=== PATIENT | female | born 1990 | race Caucasian/White ===

== ENCOUNTER 2018-12-13 20:19 | Emergency (ER) | payer BC, OTHER ==
[2018-12-13 21:15] LABS: #Eosinphils 0.1 thou/uL (0.0-0.7); #Lymphocytes 2.5 thou/uL (1.20-3.40); #Monocytes 0.6 thou/uL (0.11-0.59); #Neutrophils 3.4 thou/uL (1.40-6.50); %Basophils 0.6 % (0.0-1.0); %Eosinophils 1.4 % (0.0-10.0); %Lymphocytes 37.4 % (21.0-51.0); %Monocytes 8.9 % (0.0-10.0); %Neutrophils 51.7 % (42.0-75.0); Hemoglobin 12.7 g/dL (12.0-16.0); Mean Corpuscular Hemoglobin 29.7 pg (27.0-31.0); Mean Corpuscular Volume 87.3 fL (78.0-98.0); Mean Platelet Volume 6.3 fL (7.4-10.4); Platelet Count 241 thou/uL (130-400); RBC Distribution Width 11.5 % (11.5-14.5); Red Blood Cell (RBC) Count 4.28 mill/uL (4.20-5.40); White Blood Cell (WBC) Count 6.6 thou/uL (4.8-10.8)
[2018-12-13 21:37] LABS: ALT (SGPT) 12 U/L (8-55); AST (SGOT) 15 U/L (5-34); Albumin 3.9 g/dL (3.5-5.0); Alkaline Phosphatase 78 U/L (40-150); Anion Gap 15 mmol/L (10-20); BUN (Urea Nitrogen) 14 mg/dL (7.0-18.7); Bilirubin, Total 0.4 mg/dL (0.2-1.2); Calc. Creatinine Clearance 0 mL/min (70-130); Carbon Dioxide 26 mmol/L (22-29); Chloride 104 mmol/L (98-107); Estimated GFR-MDRD 82; Globulin 3.3 g/dL (2.4-3.5); Glucose 88 mg/dL (70-105); Potassium 3.9 mmol/L (3.5-5.1); Protein, Total 7.2 g/dL (6.0-8.3); Sodium 141 mmol/L (136-145)
== END 2018-12-13 23:06 | disposition home or self-care (01) ==
LOC: ERS 20:19
DX: E05.90 Thyrotoxicosis, unspecified without thyrotoxic crisis or storm (principal); E03.9 Hypothyroidism, unspecified; I10 Essential (primary) hypertension; E83.42 Hypomagnesemia; F41.9 Anxiety disorder, unspecified; F32.9 Major depressive disorder, single episode, unspecified; Z79.891 Long term (current) use of opiate analgesic; Z79.899 Other long term (current) drug therapy
CPT/HCPCS: 80053; 84443; 85025; 93005; 96360; 96361

== ENCOUNTER 2019-01-15 15:03 | Outpatient (CLI) | payer BC ==
--- NOTE | 2019-01-15 15:33 | BD ---
DEXA bone density scan: 01/15/2019 HISTORY: Disorders of parathyroid gland, assess for osteoporosis Lumbar Spine: BMD (g/cm2) T-SCORE L1 1.042 0.5 L2 1.081 0.5 L3 1.026 -0.5 L4 1.065 0.0 L1-L4 1.053 0.1 Femoral Neck: 0.795 -0.5 Total Femur: 1.028 0.7 FRAX-WHO fracture risk assessment tool is not reported as some T-Sores are at or above 1.0. Impression: Unremarkable bone mineral density examination. Transcribed Date/Time: 01/15/2019 4:45 PM
== END 2019-01-15 15:04 | disposition home or self-care (01) ==
LOC: BICMAMMO 15:03
PROVIDERS: ATTEND Specialist
DX: E21.4 Other specified disorders of parathyroid gland (principal)
CPT/HCPCS: 77080

== ENCOUNTER 2019-09-24 13:56 | Outpatient (CLI) | payer OTHER ==
--- NOTE | 2019-09-24 14:50 | ULT ---
RENAL ULTRASOUND HISTORY: History of and hypertension COMPARISON: None FINDINGS: Right Kidney: Size: 10.6 x 6.7 x 6.2 cm Abnormality: Normal cortical echotexture. No hydronephrosis. Left Kidney: Size: 11.0 x 6.5 x 4.5 cm Abnormality: Normal cortical echotexture. No hydronephrosis Urinary bladder: Prevoid bladder volume is 179 cc. IMPRESSION: No hydronephrosis.
== END 2019-09-24 13:57 | disposition home or self-care (01) ==
LOC: BICULT 13:56
PROVIDERS: ATTEND Obstetrics & Gynecology
DX: I10 Essential (primary) hypertension (principal)
CPT/HCPCS: 76770

== ENCOUNTER 2019-09-26 11:17 | Outpatient (CLI) | payer OTHER ==
--- NOTE | 2019-09-26 14:07 | ULT ---
THYROID ULTRASOUND: Date: 09/26/2019 HISTORY: Thyroid cancer. FINDINGS: Real-time imaging of the region of the thyroid shows thyroidectomy changes. No residual thyroid tissu e is identified. IMPRESSION: Post thyroidectomy change. POS: [facility]
== END 2019-09-26 11:18 | disposition home or self-care (01) ==
LOC: BICULT 11:17
PROVIDERS: ATTEND Specialist
DX: Z08 Encounter for follow-up examination after completed treatment for malignant neoplasm (principal); Z85.850 Personal history of malignant neoplasm of thyroid; E89.0 Postprocedural hypothyroidism
CPT/HCPCS: 76536

== ENCOUNTER 2019-09-29 12:23 | Emergency (ER) | payer OTHER | END 2019-09-29 13:55 | disposition home or self-care (01) | LOC: ERS 12:23 | DX: O9A.211 Injury, poisoning and certain other consequences of external causes complicating pregnancy, first trimester (principal); S39.012A Strain of muscle, fascia and tendon of lower back, initial encounter; O99.341 Other mental disorders complicating pregnancy, first trimester; F32.9 Major depressive disorder, single episode, unspecified; F41.9 Anxiety disorder, unspecified; M54.16 Radiculopathy, lumbar region; O99.281 Endocrine, nutritional and metabolic diseases complicating pregnancy, first trimester; O10.911 Unspecified pre-existing hypertension complicating pregnancy, first trimester; E03.9 Hypothyroidism, unspecified; Z3A.11 11 weeks gestation of pregnancy; Z79.899 Other long term (current) drug therapy; V43.52XA Car driver injured in collision with other type car in traffic accident, initial encounter | CPT/HCPCS: 99283 ==

== ENCOUNTER 2019-12-27 19:13 | Day surgery (SDC) | payer OTHER ==
[2019-12-27] MEDS ORDERED: hydrALAZINE 20 MG/ML VIAL SLOW IVP PRN (20:07)
[2019-12-27 20:11] LABS: Amnisure Test No Membranes Rupture (No Rupture)
[2019-12-27 20:12] LABS: Amnisure Internal Control QC ACCEPTABLE (ACCEPTABLE)
[2019-12-27 20:46] LABS: Bilirubin Negative (Negative); Blood, Urine Negative (Negative); Clarity Turbid (Clear); Glucose, Urine (Dipstick) Normal (Negative); Leukocyte 500 Leu/uL (Negative); Nitrite Negative (Negative); Protein, Urine (Dipstick) 50 mg/dL (Neg-Trace); RBC/HPF 0-3 HPF (0-3); Squamous Epithelial 0-3 HPF (0-3)
[2019-12-27 20:47] LABS: Bacteria/HPF 1+ HPF (None Seen)
--- NOTE | 2019-12-28 00:29 | PRG ---
DATE OF SERVICE: 12/27/2019 PRIMARY OB: Scott Hazel MD CHIEF COMPLAINT: Leakage of fluid. HISTORY OF PRESENT ILLNESS: The patient is a 29-year-old female, G3, P1, with an intrauterine at 31 weeks and 2 days, presenting to Labor and Delivery with a 1-week history of increasing discharge and leakage of fluid. The patient reports that today fluid was "dripping out" and has come in for evaluation. The patient denies fever, cough, headache, chest pain, or shortness of breath. She has had nausea without vomiting. She had diarrhea a couple of days ago. Denies constipation. Denies any new rashes, hip problems, knee problems, or muscle weakness. Denies vaginal bleeding, urinary urgency or frequency. PAST MEDICAL HISTORY: History of thyroid cancer, hypothyroidism, scoliosis, depression, ADD. PAST SURGICAL HISTORY: Gastric sleeve, cholecystectomy, wisdom tooth extraction, , D and C, thyroidectomy. ALLERGIES: SULFA. MEDICATIONS: 1. Zoloft. 2. Levothyroxine. 3. vitamins. 4. Iron. SOCIAL HISTORY: Denies drug, alcohol, or tobacco use. OB LABS: Unavailable at time of dictation. REVIEW OF SYSTEMS: Per HPI. PHYSICAL EXAMINATION: VITAL SIGNS: Blood pressure 118/74, heart rate 96, respiratory rate 15, temperature 98.2. GENERAL: She appears to be in no acute distress. She is alert, oriented, cooperative, and pleasant to interact with. HEAD: Normocephalic, atraumatic. LUNGS: Clear to auscultation bilaterally. HEART: Has regular rate and rhythm. ABDOMEN: Gravid, soft, nontender. EXTREMITIES: Nontender and nonedematous. VULVA: Without masses, lesions, or erythema. Vagina is moist. On speculum exam, there is a copious amount of curd-like discharge reminiscent of a yeast infection. Cervix is visibly closed. [employer]ICE-III was collected. Digital exam is closed and thick. DIAGNOSTIC DATA: heart tracing shows the fetus with a baseline in the 130s with moderate long-term variability, positive 15 x 15 accelerations, no decelerations. Tocometer showing some possible irritability. [employer]ICE-III shows positive for licha and bacterial vaginosis, specifically Gardnerella, negative for Trichomonas. UA positive for 1+ bacteria, 7 to 10 squamous cells, 500 leukocyte esterase, negative nitrite. AmniSure test was negative. ASSESSMENT AND PLAN: The patient is a 29-year-old female with an intrauterine at 31 weeks and 2 days, here for discharge and leakage of fluid. The patient has evidence of bacterial vaginosis and Licha as well as a urinary tract infection. The patient has been counseled to stop using vaginal douche, which she reports she has been using for quite some time now and does report she gets yeast infection on occasion. We have given her metronidazole 500 mg to be taken twice a day for the next week and fluconazole 150 mg taken now and in 1 week. In addition, the patient will be placed on Macrobid 100 mg p.o. b.i.d. for 7 days. The patient has followup appointment with her primary OB, Dr. Scott Hazel on Monday. Fetus has a category 1 tracing and reactive NST. Job ID: [id number]
== END 2019-12-27 21:30 | disposition home or self-care (01) ==
LOC: L&D/OP 19:13
PROVIDERS: ATTEND Obstetrics & Gynecology
DX: O99.89 Other specified diseases and conditions complicating pregnancy, childbirth and the puerperium (principal); N89.8 Other specified noninflammatory disorders of vagina; O23.593 Infection of other part of genital tract in pregnancy, third trimester; B96.89 Other specified bacterial agents as the cause of diseases classified elsewhere; O98.813 Other maternal infectious and parasitic diseases complicating pregnancy, third trimester; B37.3 Candidiasis of vulva and vagina; O23.43 Unspecified infection of urinary tract in pregnancy, third trimester; O99.283 Endocrine, nutritional and metabolic diseases complicating pregnancy, third trimester; E03.9 Hypothyroidism, unspecified; O99.343 Other mental disorders complicating pregnancy, third trimester; F32.9 Major depressive disorder, single episode, unspecified; F98.8 Other specified behavioral and emotional disorders with onset usually occurring in childhood and adolescence; Z88.2 Allergy status to sulfonamides; Z79.899 Other long term (current) drug therapy
CPT/HCPCS: 81001; 84112; 87480; 87510; 87660

== ENCOUNTER 2020-01-20 16:32 | Day surgery (SDC) | payer OTHER ==
[2020-01-20 17:26] VITALS: BMI 37.9
[2020-01-20] MEDS ORDERED: hydrALAZINE 20 MG/ML VIAL SLOW IVP PRN (17:46)
[2020-01-20 18:14] LABS: #Eosinphils 0.1 thou/uL (0.0-0.7); #Lymphocytes 1.9 thou/uL (1.20-3.40); #Monocytes 0.8 thou/uL (0.11-0.59); #Neutrophils 5.1 thou/uL (1.40-6.50); %Basophils 0.1 % (0.0-1.0); %Eosinophils 0.9 % (0.0-10.0); %Lymphocytes 23.8 % (21.0-51.0); %Monocytes 9.6 % (0.0-10.0); %Neutrophils 65.7 % (42.0-75.0); Hemoglobin 9.9 g/dL (12.0-16.0); Mean Corpuscular HGB CONC 33.8 g/dL (32.0-36.0); Mean Corpuscular Hemoglobin 27.4 pg (27.0-31.0); Mean Corpuscular Volume 80.9 fL (78.0-98.0); Mean Platelet Volume 6.2 fL (7.4-10.4); Platelet Count 160 thou/uL (130-400); RBC Distribution Width 16.1 % (11.5-14.5); Red Blood Cell (RBC) Count 3.62 mill/uL (4.20-5.40); White Blood Cell (WBC) Count 7.8 thou/uL (4.8-10.8)
[2020-01-20 18:44] LABS: ALT (SGPT) Less than 7 U/L (8-55); AST (SGOT) 14 U/L (5-34); Albumin 2.9 g/dL (3.5-5.0); Alkaline Phosphatase 163 U/L (40-110); Anion Gap 9 mmol/L (10-20); BUN (Urea Nitrogen) 10 mg/dL (7.0-18.7); Bilirubin, Total 0.3 mg/dL (0.2-1.2); Calc. Creatinine Clearance 185 mL/min (70-130); Carbon Dioxide 26 mmol/L (22-29); Chloride 107 mmol/L (98-107); Estimated GFR-MDRD Greater than 90; Globulin 3.1 g/dL (2.4-3.5); Glucose 76 mg/dL (70-105); Potassium 3.6 mmol/L (3.5-5.1); Sodium 138 mmol/L (136-145)
--- NOTE | 2020-01-21 02:01 | SS ---
DATE OF ADMISSION: 01/20/2020 DATE OF DISCHARGE: 01/20/2020 REGULAR PHYSICIAN: Scott Hazel MD EVALUATING PHYSICIAN: Mario Singleton MD CHIEF COMPLAINT: Elevated blood pressures. HISTORY OF PRESENT ILLNESS: Ms. Cary is a 29-year-old white G3, P1, with an estimated date of confinement of 02/26/2020, who presents stating that she was seen in [facility] today with blood pressures of 150 systolic with 1+ protein. She states that she was sent here for further evaluation. She denies visual changes or right upper quadrant pain. She also denies associated contractions, vaginal bleeding, or ruptured membranes. PAST OBSTETRICAL HISTORY: Includes one previous section. PAST MEDICAL HISTORY: Includes hypothyroidism, history of thyroid cancer, chronic hypertension, ADHD. PAST SURGICAL HISTORY: Includes section, gastric sleeve, cholecystectomy. CURRENT MEDICATIONS: Include, 1. Levoxyl. 2. vitamins and iron. 3. Coreg 25 mg b.i.d. ALLERGIES: SULFA. SOCIAL HISTORY: Denies tobacco, alcohol, or drug use. FAMILY HISTORY: Unremarkable. REVIEW OF SYSTEMS: Denies nausea, vomiting, fever, chills, ruptured membranes, vaginal bleeding, visual change, or right upper quadrant pain. PHYSICAL EXAMINATION: VITAL SIGNS: Serial blood pressures in Labor and Delivery were 116/73, 116/82, and 105/57. GENERAL: She is pleasant and in no acute distress. ABDOMEN: Slightly gravid and slightly obese. heart rate tracing is stable without decelerations. No regular contractions are seen. LABORATORY DATA: White count 7.8, hemoglobin and hematocrit 9.9 and 29.3, platelet count 160,000. Chemistries show sodium of 138, potassium of 3.6, BUN of 10, creatinine of 0.72, glucose of 76, total bilirubin 0.3, AST 14, ALT less than 7. Urine shows a srigtll-rg-rxqrivjofu ratio 0.19. ASSESSMENT: 1. 34- and 5/7-week intrauterine . 2. No evidence of elevated blood pressures or laboratory evidence of preeclampsia. PLAN: The patient will be dismissed to home with precautions. She was reassured and states that she has an appointment with Dr. Hazel in one week. Job ID: [id number]
== END 2020-01-20 20:00 | disposition home or self-care (01) ==
LOC: L&D/OP 16:32
PROVIDERS: ATTEND Obstetrics & Gynecology
DX: O10.913 Unspecified pre-existing hypertension complicating pregnancy, third trimester (principal); O99.283 Endocrine, nutritional and metabolic diseases complicating pregnancy, third trimester; E03.9 Hypothyroidism, unspecified; O34.219 Maternal care for unspecified type scar from previous cesarean delivery; Z3A.34 34 weeks gestation of pregnancy; Z88.2 Allergy status to sulfonamides
CPT/HCPCS: 36415; 80053; 82570; 84156; 85025

== ENCOUNTER 2020-01-25 14:03 | Observation (INO) | payer OTHER ==
[2020-01-25] MEDS ORDERED: hydrALAZINE 20 MG/ML VIAL SLOW IVP PRN (15:08)
[2020-01-25] MEDS ORDERED: Ondansetron PF 4 MG/2 ML Vial IVP PRN (15:08)
[2020-01-25] MEDS ORDERED: Promethazine HCl 25 MG/ML VIAL IM PRN (15:08)
[2020-01-25 15:28] LABS: Calcium 7.5 mg/dL (7.8-10.44); Magnesium 1.7 mg/dL (1.6-2.6)
[2020-01-25 15:35] LABS: Hemoglobin 11.1 g/dL (12.0-16.0); Mean Corpuscular Hemoglobin 26.5 pg (27.0-31.0); Mean Corpuscular Volume 80.4 fL (78.0-98.0); Mean Platelet Volume 5.6 fL (7.4-10.4); Platelet Count 222 thou/uL (130-400); RBC Distribution Width 16.4 % (11.5-14.5); Red Blood Cell (RBC) Count 4.19 mill/uL (4.20-5.40); White Blood Cell (WBC) Count 9.9 thou/uL (4.8-10.8)
--- NOTE | 2020-01-25 15:44 | HP ---
TIME OF SERVICE: 1445 hours. REASON FOR ADMISSION: 35 weeks and 3 days, prior section with a history of essential hypertension, reporting severe range of blood pressures at home. HISTORY OF PRESENT ILLNESS: The patient is a 29-year-old, 3, para 1, AB1, x1 at 35 weeks and 3 days with a due date of 02/26/2020. She sees myself at [facility]. She has a complicated medical history and has had some elevated blood pressures over the past several weeks at home. Blood pressures in the office have been non-severe range. However, the patient continues to call and reports severe range blood pressures to mid 150s/90s at home. Denies headache or scotoma. Decision was made to admit the patient to hospital for serial blood pressures and further laboratory evaluation. [employer]ANDLE [employer] HISTORY: x1, preeclampsia x1, history of molar . Blood type AB-positive, antibody negative. Pap negative. Rubella immune. VDRL nonreactive. Hepatitis B, GC, chlamydia negative, 50 g within normal limits. 32-week hematocrit 29% with normal platelet count. PAST MEDICAL HISTORY: Significant for papillary follicular thyroid cancer removed in 2017 with hypothyroidism, hypoparathyroidism since. Also her history of molar . PAST SURGICAL HISTORY: Significant for , bariatric surgery, and D and C for molar . SOCIAL HISTORY: Denies tobacco, alcohol, or IV drug use. FAMILY HISTORY: Noncontributory. REVIEW OF SYSTEMS: Noncontributory. PHYSICAL EXAMINATION: GENERAL: Obese female. Pre- weight 179. Current weight 230. VITAL SIGNS: Blood pressure 129/84, initial blood pressure. Temperature 98.4, respirations 18, pulse 87. HEENT: Within normal limits. LUNGS: Clear to auscultation bilaterally. HEART: Regular rate and rhythm. BREASTS: Without masses bilaterally. ABDOMEN: Soft, nontender. Fundal height 35 cm. FHTs 140s. : Vulvar lesions. Vaginal exam was deferred. EXTREMITIES: Trace edema. 1+ DTRs. IMPRESSION: Elevated blood pressures at home in a patient with complex medical conditions, previous section, and 35 weeks' gestation. PLAN: Admission. [facility] labs . We will check protein-creatinine ratio and do a 24-hour urine. Rate of growth ultrasounds. Serial blood pressures. If the patient rules out for severe hypertension, we will discharge home in approximately 24 to 36 hours. If severe preeclampsia was noted, we will manage appropriately for delivery. Job ID: [id number]
[2020-01-25 15:48] LABS: Free T4 (Free Thyroxine) 0.82 ng/dL (0.70-1.48); Thyroid Stimulating Hormone 2.8872 uIU/mL (0.35-4.94)
[2020-01-25 15:50] LABS: Creatinine, Urine 215.52 mg/dL (47-110)
[2020-01-25 15:57] LABS: ALT (SGPT) 10 U/L (8-55); AST (SGOT) 17 U/L (5-34); Albumin 3.3 g/dL (3.5-5.0); Alkaline Phosphatase 215 U/L (40-110); Anion Gap 17 mmol/L (10-20); BUN (Urea Nitrogen) 8 mg/dL (7.0-18.7); Bilirubin, Total 0.4 mg/dL (0.2-1.2); Calc. Creatinine Clearance 0 mL/min (70-130); Calcium 7.6 mg/dL (7.8-10.44); Carbon Dioxide 21 mmol/L (22-29); Chloride 105 mmol/L (98-107); Estimated GFR-MDRD Greater than 90; Globulin 3.7 g/dL (2.4-3.5); Glucose 70 mg/dL (70-105); Potassium 3.9 mmol/L (3.5-5.1); Sodium 139 mmol/L (136-145)
[2020-01-25 16:13] LABS: HBSAg Index 0.15 S/CO (0-0.99); Hep B Surf Ag Non-Reactive S/CO (NonReactive); Syphilis Antibody Nonreactive (Nonreactive); Syphilis Antibody Index 0.02 S/CO (<1.00 Non-Reactive)
[2020-01-25 16:39] VITALS: BMI 37.5
[2020-01-25] MEDS ORDERED: Mag-Al 1200 mg/1200 mg/30 ML UDCUP PO PRN (16:42)
[2020-01-25] MEDS ORDERED: Zolpidem Tartrate 5 MG TAB PO PRN (16:42)
--- NOTE | 2020-01-25 17:30 | ULT ---
LIMITED OB ULTRASOUND: 01/25/20 HISTORY: Size and dates. History of hypertension. Real time imaging of the pelvis shows a single viable intrauterine in cephalic presentation . measurements are as follows: BPD 8.7 cm 35 weeks, 0 days Head circumference 31.7 cm 35 weeks, 4 days Abdominal circumference 31.3 cm 35 weeks, 2 days Femur length 6.8 cm 35 weeks, 1 day The placenta is posterior in location. No signs of previa. Amniotic fluid is adequate for this stage of and amniotic fluid index of approximately 13 was obtained. heart rate is 155 beats per minute. anatomy was not assessed for this exam. Single viable intrauterine in cephalic presentation. Overall measurements corresponding to a gestational age of 35 weeks, 0 day. Estimated date of delivery of 02/28/20. IMPRESSION: 1. Placenta which is posterior in location without evidence of previa. 2. Estimated weight 2600 +/- 390 grams. 3. Cervical canal length could not be assessed. POS: [facility] [place]
[2020-01-25] MEDS ORDERED: Levothyroxine Sodium 100 MCG TAB PO SCH (20:00)
[2020-01-25] MEDS ORDERED: Ferrous Sulfate 325 MG TAB PO SCH (20:00)
[2020-01-25] MEDS: Carvedilol 25 MG TAB PO SCH (20:38)
[2020-01-26] MEDS ORDERED: Levothyroxine Sodium 100 MCG TAB PO SCH (06:00)
--- NOTE | 2020-01-26 07:25 | PRG ---
DATE OF SERVICE: 01/26/2020 TIME OF SERVICE: 0655 hours. SUBJECTIVE: The patient is resting comfortably. She denies headache, blurred vision. She is collecting a 24-hour urine, this should be finished this afternoon. OBJECTIVE: VITAL SIGNS: The patient's temperature is 97.9, pulse 85, respirations 18, and blood pressure 109/51. Blood pressures have ranged throughout the night from 92 systolic to 132 to diastolics in the 50s to 70s. FHTs are 140s. Physical exam is unchanged from yesterday. LABORATORY DATA: Upon admission reveal hematocrit of 33%, platelet count of 222. Normal creatinine and normal LFTs. A protein to creatinine ratio of less than 0.2. IMPRESSION: The patient obviously has issues with accuracy of her blood pressure cuff at home as her hospital blood pressures are not consistent with severe range, gestational hypertension but are actually within normal limits to low. The patient is quite hypochondriacal, which is understandable considering her multiple medical issues including her papillary and follicular thyroid cancer diagnosis in the past. Discussion with the patient was had, the patient will try to obtain a new blood pressure cuff. Will be discharged home after finishing up the 24-hour urine collection by Dr. Singleton later today and we will keep scheduled followup at [facility] with anticipated repeat section as scheduled. Of note, the patient's TSH and free T4 were within normal limits on laboratory assay. Job ID: [id number]
[2020-01-26] MEDS ORDERED: Prenatal Vitamin 1 TAB PO SCH (09:00)
[2020-01-26] MEDS ORDERED: LISDEXAMFETAMINE DIMESYLATE PO SCH (09:00)
[2020-01-26] MEDS ORDERED: Aspirin Chewable 81 MG TAB PO SCH ×2 (09:00)
[2020-01-26] MEDS ORDERED: Ferrous Sulfate 325 MG TAB PO SCH (09:00)
[2020-01-26] MEDS ORDERED: Carvedilol 3.125 MG TAB PO SCH (09:00)
[2020-01-26] MEDS: Carvedilol 25 MG TAB PO SCH (09:04)
[2020-01-26 15:36] VITALS: BP 140/57; TEMP 98.6
[2020-01-26 16:04] LABS: Urine Total Volume 1775 mL (600-1600)
[2020-01-26 16:24] LABS: Protein - 24 Hr 213 mg/24 hr (Less than 300); Protein, Urine 12 mg/dL (1-14)
--- NOTE | 2020-01-26 16:49 | PDOC.EVN ---
Event Note - Event Note Event Note: No complaints. BPs are reassuring. 24 hr urine for TP returns 213 mg/24 hrs. Plan: DC home with [facility] precautions. F/u with Dr. Hazel this week.
--- NOTE | 2020-01-27 14:52 | DIS ---
DATE OF ADMISSION: 01/25/2020 DATE OF DISCHARGE: 01/26/2020 ATTENDING PHYSICIAN: Dr. Scott Hazel. DISCHARGING PHYSICIAN: Dr. Mario Singleton. DIAGNOSES: 1. Possible cHTN vs gHTN without severe range pressures. 2. History of papillary follicular thyroid cancer removed in 2017. 3. Iatrogenic hypothyroidism secondary to thyroidectomy. 4. Hypoparathyroidism. 5. History of molar . IMAGING: Growth ultrasound performed, which showed estimated weight of 2600 g with a gestational age of 35 and 0 weeks. Infant noted to be cephalic presentation. Posterior placenta. NINO 13 cm. heart tones of 145 beats per minute. HISTORY OF PRESENT ILLNESS/HOSPITAL COURSE: This is a 29-year-old, G3, P1-0-1- 1 at 35 and 4 days with a due date of 02/26/2020, who presented with elevated blood pressure readings at home. The patient reported blood pressure was in the 150s/ 90 at home. Of note, the patient is on Coreg which suggests she might have underlying chronic hypertension. She was admitted for serial blood pressures and further laboratory evaluation. Laboratory evaluation showed hemoglobin 11.1, hematocrit 33.7, platelet count 222. CMP showed sodium 139, potassium 3.9, chloride 105, bicarb 21, BUN 8, creatinine 0.73, glucose 70. AST 17, ALT 10. TSH 2.88 with free T4 of 0.82. 24-hour urine protein was unremarkable at 213. Laboratory values suggest the absence of preeclampsia. Serial evaluation of blood pressures was unremarkable for any severe range pressures. Of note, the patient is on Coreg 3.125 mg b.i.d. She did get 25 mg dose, which did drop her blood pressure for short period of time. The patient does report feeling nauseated and dizzy during this time, but those symptoms have since resolved, and her blood pressures have remained stable. The highest blood pressure reading obtained was 140/57 during the hospitalization. The patient reports using an arm cuff at home, for which she feels like she is taking her blood pressure correctly. Given there was no concern for severe range pressures and laboratory evaluation was normal, the patient was discharged home with return precautions. She was advised to follow up with her primary OB provider for repeat blood pressure check in the outpatient setting. She is to continue her medications as previously prescribed. The patient was understanding and agreeable with plan. Of note, an NST was performed during the hospitalization, and the strip was noted to be reactive. DISPOSITION: Discharged home in stable condition. DISCHARGE INSTRUCTIONS: 1. Location: Home. 2. Diet: Regular. 3. Activity: As tolerated. 4. Follow up with Dr. Hazel in the outpatient setting within the next week for blood pressure check. Job ID: [id number] [id number]
== END 2020-01-26 16:59 | disposition home or self-care (01) ==
LOC: L&D/OP 14:03 → INTOOBSV 17:10 → 3SE 17:10
PROVIDERS: ADMIT Obstetrics & Gynecology; ATTEND Obstetrics & Gynecology
DX: O10.013 Pre-existing essential hypertension complicating pregnancy, third trimester (principal); O99.283 Endocrine, nutritional and metabolic diseases complicating pregnancy, third trimester; E89.0 Postprocedural hypothyroidism; E20.9 Hypoparathyroidism, unspecified; O34.219 Maternal care for unspecified type scar from previous cesarean delivery; O99.843 Bariatric surgery status complicating pregnancy, third trimester; Z85.850 Personal history of malignant neoplasm of thyroid; Z3A.35 35 weeks gestation of pregnancy; Z79.82 Long term (current) use of aspirin; Z79.899 Other long term (current) drug therapy; Z88.2 Allergy status to sulfonamides
CPT/HCPCS: 36415; 36416; 76815; 82310; 82570; 83735; 84156; 84439; 84443; 85027; 86780; 86850; 86900; 86901; 87340; 99285

== ENCOUNTER 2020-04-10 20:02 | Inpatient (IN) | payer OTHER ==
[2020-04-10 20:37] LABS: #Eosinphils 0.1 thou/uL (0.0-0.7); #Lymphocytes 1.7 thou/uL (1.20-3.40); #Monocytes 0.6 thou/uL (0.11-0.59); #Neutrophils 5.6 thou/uL (1.40-6.50); %Basophils 0.3 % (0.0-1.0); %Eosinophils 1.5 % (0.0-10.0); %Lymphocytes 20.8 % (21.0-51.0); %Monocytes 7.7 % (0.0-10.0); %Neutrophils 69.8 % (42.0-75.0); Hemoglobin 10.8 g/dL (12.0-16.0); Mean Corpuscular HGB CONC 33.1 g/dL (32.0-36.0); Mean Corpuscular Hemoglobin 26.7 pg (27.0-31.0); Mean Corpuscular Volume 80.6 fL (78.0-98.0); Mean Platelet Volume 6.8 fL (7.4-10.4); Platelet Count 219 thou/uL (130-400); RBC Distribution Width 12.9 % (11.5-14.5); Red Blood Cell (RBC) Count 4.04 mill/uL (4.20-5.40)
[2020-04-10 20:55] LABS: ALT (SGPT) 18 U/L (8-55); AST (SGOT) 23 U/L (5-34); Albumin 3.7 g/dL (3.5-5.0); Alkaline Phosphatase 91 U/L (40-110); Anion Gap 13 mmol/L (10-20); BUN (Urea Nitrogen) 11 mg/dL (7.0-18.7); Bilirubin, Total 0.3 mg/dL (0.2-1.2); Calc. Creatinine Clearance 0 mL/min (70-130); Carbon Dioxide 28 mmol/L (22-29); Chloride 102 mmol/L (98-107); Estimated GFR-MDRD 87; Globulin 3.1 g/dL (2.4-3.5); Glucose 76 mg/dL (70-105); Magnesium 1.6 mg/dL (1.6-2.6); Protein, Total 6.8 g/dL (6.0-8.3); Sodium 140 mmol/L (136-145)
[2020-04-10 21:06] LABS: Potassium 2.9 mmol/L (3.5-5.1)
[2020-04-10 21:13] LABS: Thyroid Stimulating Hormone 0.0706 uIU/mL (0.35-4.94)
[2020-04-10 21:15] LABS: BHCG - Serum Negative (NEGATIVE); Pregs Control Background? CLEAR/WHITE (CLR/WHITE); Pregs Control Bar Appear? YES (CONTROL BAR)
[2020-04-10] MEDS ORDERED: Magnesium 2 GM/50 ML BAG (IN WATER) ONE (21:44)
[2020-04-10] MEDS ORDERED: Calcium Gluc 4.6 MEQ/10 ML (100 MG/ML) ONE ×2 (21:44→22:50)
[2020-04-10] MEDS ORDERED: Potassium Chloride 20 MEQ TAB ONE (21:44)
[2020-04-10] MEDS ORDERED: NS 0.9% w/ 40 MEQ KCL 1,000 ML IV SCH (22:15)
[2020-04-11] MEDS ORDERED: Ondansetron ODT 4 MG TAB SL PRN (00:25)
[2020-04-11] MEDS ORDERED: Ondansetron PF 4 MG/2 ML Vial IVP PRN (00:25)
[2020-04-11] MEDS ORDERED: Acetaminophen 325 MG TAB PO PRN (00:25)
[2020-04-11 01:24] VITALS: BMI 35.2
[2020-04-11 11:53] LABS: Anion Gap 12 mmol/L (10-20); BUN (Urea Nitrogen) 8 mg/dL (7.0-18.7); Calc. Creatinine Clearance 174 mL/min (70-130); Carbon Dioxide 26 mmol/L (22-29); Chloride 105 mmol/L (98-107); Estimated GFR-MDRD Greater than 90; Glucose 80 mg/dL (70-105); Potassium 4.3 mmol/L (3.5-5.1); Sodium 139 mmol/L (136-145)
[2020-04-11 12:03] LABS: Calcium 5.8 mg/dL (7.8-10.44)
--- NOTE | 2020-04-11 12:34 | HP ---
CHIEF COMPLAINT ON ADMISSION: Hypocalcemia and hypokalemia. HISTORY OF PRESENT ILLNESS: The patient is a 29-year-old female who has a history of hypocalcemia ever since her thyroid was resected for thyroid cancer. She had her parathyroid glands removed as well. She has normally been followed by an early childhood lead teacher in [place]. She had previously been getting IM shots of calcium because oral calcium is not absorbed. However, the FDA may have taken this off the market recently, and since this time, the patient has struggled to keep her calcium levels at therapeutic range. She does take oral calcium and vitamin D supplements. She is compliant with her thyroid medications. She was stable until she delivered via recent section approximately 8 weeks ago. She has not been , but she has not felt normal since the delivery. She presented to the emergency room with numbness and tingling in hands and feet for several days. It has steadily gotten so bad, she finally had to come to the ER for relief. Her face was twitching bilaterally and uncontrollably. She felt very lightheaded as if she were about to pass out. Her stated that she looked like she was about to pass out as well and being extremely weak, bringing her to the emergency room for relief. In the emergency room, her calcium level was found to be 6.0. Her TSH suppressed at 0.071. Her potassium was noted to be 2.9. Dr. Trotter was contacted for admission. She did have some improvement with IV fluids. PAST MEDICAL HISTORY: As mentioned above. Long history of hypocalcemia; history of thyroid cancer, status post thyroidectomy; history of hypomagnesemia, her magnesium level is not immediately available at this time; history of hypertension; hypothyroidism; and attention deficit disorder. PAST SURGICAL HISTORY: Includes gastric sleeve, section, lobectomy of right thyroid, D and C, and ultimately complete thyroidectomy. PSYCHIATRIC HISTORY: Significant for anxiety and depression. SOCIAL HISTORY: Denies alcohol use or drug use. Has no smoking history and is . ALLERGIES: SULFA. MEDICATIONS ON ADMISSION: 1. Caltrate 600 mg 3 times a day. 2. Calcitriol 0.5 mcg orally 3 times a day. 3. Levothyroxine reduced from 200 to 175 recently once a day. 4. Carvedilol 6.25 mg daily. 5. Adderall 30 mg once a day. REVIEW OF SYSTEMS: CONSTITUTIONAL: Positive for fatigue, malaise, but denies fever, chills, or exposure to anyone with COVID. Denies nausea, vomiting, or diarrhea. HEENT: Denies drainage from eyes, ears, nose, or throat. CHEST: Denies cough or shortness of breath. CARDIOVASCULAR: Denies palpitations or chest pain. GASTROINTESTINAL: Denies nausea, vomiting, or diarrhea. GENITOURINARY: Denies dysuria or blood in urine or stool. Menstrual cycles are regular. She has a negative test. MUSCULAR: Has spasms of her muscles and uncontrollable twitching. NEUROLOGIC: Has paresthesias diffusely in hands and feet. ENDOCRINE: Denies swelling. PHYSICAL EXAMINATION AT THE TIME OF ADMISSION: VITAL SIGNS: Blood pressure 110/56, temperature 97.7, pulse 89, respirations 15, O2 saturation 99% on room air. GENERAL: This is an obese female, alert, oriented, and cooperative. HEENT: Normocephalic, atraumatic. Pupils are equal, round, and reactive to light. Extraocular muscles are intact. TMs, nares, and pharynx are clear. She does have a positive Chvostek sign. NECK: Supple. Trachea midline. No mass. Well-healed thyroidectomy scar. CHEST: Clear to auscultation. BREASTS: Exam deferred. HEART: Regular rate and rhythm without murmur. ABDOMEN: Soft, nontender without organomegaly. Well-healed scar. GENITOURINARY: Deferred. EXTREMITIES: Without clubbing, cyanosis, edema. Symmetrical muscular tone development noted in upper and lower extremities. Normal range of motion demonstrated. SKIN: No acute rashes or lesions. Multiple tattoos. NEUROLOGIC: Cranial nerves are intact. Gait and cerebral function not tested. Sensory exam is grossly intact. She has a positive Chvostek sign. Mental status is stable. LABS ON ADMISSION: Showed WBCs at 8, hemoglobin 10.8, hematocrit 32.6, platelets at 219. Sodium 140, potassium 2.9, chloride 102, CO2 of 28, BUN 11, creatinine 0.77 with a GFR of 87, glucose 76, calcium 6.0, magnesium 1.6. Liver functions unremarkable. TSH 0.0706. test negative. Urinalysis is pending. ASSESSMENT: 1. Severe hypocalcemia. 2. Hypokalemia. 3. Status post thyroid ablation with recurrent hypocalcemia due to inclusion of parathyroids. 4. Complete hypoparathyroidism. 5. Status post of normal . 6. Depression and anxiety, stable. PLAN: IV calcium gluconate with repeat levels to therapeutic level, potassium supplementation, and Endocrinology consultation for assistance in treatment and long-term care. We will serially re-evaluate her electrolytes and calcium level as we supplement them. Job ID: [id number]
[2020-04-11 13:56] LABS: Magnesium 1.8 mg/dL (1.6-2.6); Phosphorus 4.3 mg/dL (2.3-4.7)
[2020-04-11] MEDS ORDERED: Calcitriol 0.25 MCG CAP PO SCH (14:00)
[2020-04-11 14:13] LABS: SARS-CoV-2 MS2 Positive; SARS-CoV-2 N Gene Negative; SARS-CoV-2 S Gene Negative; SARS-CoV-2 by NAA Not Detected (NotDetected); SARS-CoV-2 orf1ab Negative
[2020-04-11] MEDS: Potassium Chloride 20 MEQ TAB PO SCH (14:25)
[2020-04-11] MEDS: Calcium Gluconate 4.6 MEQ in Sodium Chloride 0.9% 100 ML IVPB SCH ×3 (14:25→20:49)
[2020-04-11] MEDS: Sodium Chloride 0.9% 1,000 ML IV SCH (14:26)
[2020-04-11 17:54] LABS: Bacteria/HPF None Seen HPF (None Seen); Bilirubin Negative (Negative); Blood, Urine 1+ (Negative); Clarity Clear (Clear); Glucose, Urine (Dipstick) Normal (Negative); Ketone, Urine Negative (Negative); Leukocyte Negative Leu/uL (Negative); Nitrite Negative (Negative); Protein, Urine (Dipstick) Negative (Neg-Trace); RBC/HPF 0-3 HPF (0-3); Specific Gravity, Urine 1.006 (1.002-1.036); Squamous Epithelial 0-3 HPF (0-3); Urobilinogen Normal mg/dL (Less than 2); WBC/HPF 0-3 HPF (0-3)
[2020-04-11] MEDS: Carvedilol 3.125 MG TAB PO SCH (20:49)
[2020-04-11] MEDS: Cinacalcet HCl 30 MG TAB PO SCH (20:49)
[2020-04-12] MEDS: Calcium Gluconate 4.6 MEQ in Sodium Chloride 0.9% 100 ML IVPB SCH ×6 (04:16→21:48)
[2020-04-12 05:15] LABS: Anion Gap 11 mmol/L (10-20); BUN (Urea Nitrogen) 9 mg/dL (7.0-18.7); Calc. Creatinine Clearance 172 mL/min (70-130); Calcium 7.3 mg/dL (7.8-10.44); Carbon Dioxide 28 mmol/L (22-29); Chloride 103 mmol/L (98-107); Estimated GFR-MDRD Greater than 90; Glucose 85 mg/dL (70-105); Iron 27 ug/dL (50-170); Iron Binding Capacity, Total 498 mcg/dL (265-497); Potassium 4.1 mmol/L (3.5-5.1); Sodium 138 mmol/L (136-145)
[2020-04-12] MEDS: Levothyroxine 150 MCG TAB PO SCH (05:45)
[2020-04-12] MEDS: Aspirin Chewable 81 MG TAB PO SCH (09:15)
[2020-04-12] MEDS: Citalopram 20 MG TAB PO SCH (09:15)
[2020-04-12] MEDS: Cinacalcet HCl 30 MG TAB PO SCH ×2 (09:15→21:48)
[2020-04-12] MEDS: Carvedilol 3.125 MG TAB PO SCH ×2 (09:16→21:48)
[2020-04-12 10:43] LABS: Anion Gap 12 mmol/L (10-20); BUN (Urea Nitrogen) 7 mg/dL (7.0-18.7); Calc. Creatinine Clearance 179 mL/min (70-130); Calcium 7.4 mg/dL (7.8-10.44); Carbon Dioxide 28 mmol/L (22-29); Chloride 102 mmol/L (98-107); Estimated GFR-MDRD Greater than 90; Glucose 76 mg/dL (70-105); Potassium 4.1 mmol/L (3.5-5.1); Sodium 138 mmol/L (136-145)
[2020-04-12] MEDS: Sodium Chloride 0.9% 1,000 ML IV SCH ×2 (11:04)
[2020-04-12] MEDS: Potassium Chloride 20 MEQ TAB PO SCH (13:35)
[2020-04-13] MEDS: Calcium Gluconate 4.6 MEQ in Sodium Chloride 0.9% 100 ML IVPB SCH ×4 (00:57→13:58)
[2020-04-13] MEDS: Levothyroxine 150 MCG TAB PO SCH (05:41)
[2020-04-13] MEDS: Carvedilol 3.125 MG TAB PO SCH ×2 (09:05→20:34)
[2020-04-13] MEDS: Cinacalcet HCl 30 MG TAB PO SCH ×2 (09:05→20:34)
[2020-04-13] MEDS: Citalopram 20 MG TAB PO SCH (09:05)
[2020-04-13] MEDS: Aspirin Chewable 81 MG TAB PO SCH (09:05)
[2020-04-13] MEDS: Potassium Chloride 20 MEQ TAB PO SCH (13:58)
[2020-04-13 14:47] LABS: Anion Gap 14 mmol/L (10-20); BUN (Urea Nitrogen) 12 mg/dL (7.0-18.7); Calc. Creatinine Clearance 163 mL/min (70-130); Calcium 7.7 mg/dL (7.8-10.44); Carbon Dioxide 30 mmol/L (22-29); Chloride 99 mmol/L (98-107); Estimated GFR-MDRD 89; Glucose 89 mg/dL (70-105); Potassium 4.3 mmol/L (3.5-5.1); Sodium 139 mmol/L (136-145)
[2020-04-13] MEDS ORDERED: Calcium Gluconate 4.6 MEQ in Sodium Chloride 0.9% 100 ML IVPB SCH (15:30)
[2020-04-13] MEDS: Calcium Gluconate 9.2 MEQ in Sodium Chloride 0.9% 100 ML IVPB SCH (20:34)
[2020-04-14] MEDS: Calcium Gluconate 9.2 MEQ in Sodium Chloride 0.9% 100 ML IVPB SCH ×3 (00:10→07:54)
[2020-04-14] MEDS: Levothyroxine 150 MCG TAB PO SCH (04:11)
[2020-04-14 07:42] LABS: Anion Gap 14 mmol/L (10-20); BUN (Urea Nitrogen) 15 mg/dL (7.0-18.7); Calc. Creatinine Clearance 163 mL/min (70-130); Calcium 9.1 mg/dL (7.8-10.44); Carbon Dioxide 31 mmol/L (22-29); Chloride 97 mmol/L (98-107); Estimated GFR-MDRD 89; Glucose 88 mg/dL (70-105); Potassium 4.4 mmol/L (3.5-5.1); Sodium 138 mmol/L (136-145)
[2020-04-14] MEDS: Aspirin Chewable 81 MG TAB PO SCH (07:53)
[2020-04-14] MEDS: Cinacalcet HCl 30 MG TAB PO SCH (07:53)
[2020-04-14] MEDS: Carvedilol 3.125 MG TAB PO SCH (07:53)
[2020-04-14] MEDS: Citalopram 20 MG TAB PO SCH (07:54)
[2020-04-14 08:39] VITALS: BP 151/78; TEMP 98.2
--- NOTE | 2020-04-18 15:19 | EKG ---
Test Reason : Blood Pressure : / mmHG Vent. Rate : 077 BPM Atrial Rate : 077 BPM P-R Int : 148 ms QRS Dur : 088 ms QT Int : 442 ms P-R-T Axes : 052 038 051 degrees QTc Int : 500 ms Normal sinus rhythm Prolonged QT Abnormal ECG Confirmed by FAROOQ THOMPSON DO ([id number]), electronic news gathering editor RUBY PAZ ([id number] on 04/18/2020 3:19:11 PM Referred By: Confirmed By:FAROOQ THOMPSON DO
== END 2020-04-14 10:41 | disposition home or self-care (01) | DRG 641 ==
LOC: ERS 20:02 → 2NO 22:26 → T4-A 04-12 12:23
PROVIDERS: ADMIT Specialist; ATTEND Specialist
DX: E83.51 Hypocalcemia (principal); E20.9 Hypoparathyroidism, unspecified; F32.9 Major depressive disorder, single episode, unspecified; F41.9 Anxiety disorder, unspecified; E87.6 Hypokalemia; E89.0 Postprocedural hypothyroidism; I10 Essential (primary) hypertension; Z20.828 Contact with and (suspected) exposure to other viral communicable diseases; D50.9 Iron deficiency anemia, unspecified; F98.8 Other specified behavioral and emotional disorders with onset usually occurring in childhood and adolescence; Z85.850 Personal history of malignant neoplasm of thyroid; Z88.2 Allergy status to sulfonamides; Z79.899 Other long term (current) drug therapy; Z79.890 Hormone replacement therapy
CPT/HCPCS: 36415; 80048; 80053; 81003; 81015; 82340; 82728; 83540; 83550; 83735; 83970; 84100; 84443; 84703; 85025; 87635; 93005; J3475; J3480; J3490; U0003